=== PATIENT | male | born 1990 | race Caucasian/White ===

== ENCOUNTER 2018-11-06 10:35 | Inpatient (IN) | payer OTHER | END 2018-11-09 11:10 | disposition home or self-care (01) | LOC: YASAS 10:35 → Y6N 18:12 ==

== ENCOUNTER 2018-12-10 13:01 | Inpatient (IN) | payer OTHER | END 2018-12-13 17:30 | disposition other institution (70) | LOC: YASAS 13:01 → Y6N 17:17 ==

== ENCOUNTER 2018-12-13 17:55 | Inpatient (IN) | payer OTHER ==
--- NOTE | 2018-12-13 15:21 | HP ---
[facility] Rehab Assess/Revision - Admission History Admitted to Rehab from: [facility] - Findings Detox History & Physical reviewed: Yes Concur with findings: Yes Inpatient Rehab Admission - Rehab Decision to Admit Inpatient rehab admission?: Yes - Initial Determination Are CD services needed?: Yes Free of communicable disease: Yes Not in need of hospitalization: Yes - Rehab Admission Criteria Previous failed treatment: Yes Poor recovery environment: Yes Comorbidities: Yes Lacks judgement: Yes Patient is meeting Inpatient Rehab admission criteria:: Yes
[~2018-12-13 17:55] MED LIST: LOPERAMIDE HCL 2 MG CAPSULE PO PRN; MAGNESIUM CITRATE 300 ML BOTTLE PO PRN; MAGNESIUM HYDROX 2400MG/30ML ORAL SUSPENSION 30 ML CUP PO PRN; MENTHOL/PHENOL 1 EACH UD MM PRN; NICOTINE POLACRILEX 4 MG GUM BUC PRN; P-EPHED 60MG/TRIPROLIDI 2.5MG TABLET PO PRN; guaiFENesin 200 MG/10 ML 10 ML UNIT-DOSE CUPS PO PRN
[2018-12-13] MEDS: THIAMINE HCL 100 MG TABLET (FP) PO SCH (21:07)
[2018-12-13] MEDS: GABAPENTIN 300 MG CAPSULE (FP) PO SCH (21:07)
[2018-12-13] MEDS: MAG HYDROX/AL HYDROX/SIMETH 30 ML UNIT-DOSE CUP PO PRN (21:08)
[2018-12-13] MEDS: IBUPROFEN 400 MG TABLET (FP) PO PRN (21:09)
[2018-12-13] MEDS ORDERED: MELATONIN 5 MG TABLETS PO PRN (22:00)
[2018-12-14] MEDS: GABAPENTIN 300 MG CAPSULE (FP) PO SCH ×3 (06:29→21:09)
[2018-12-14] MEDS ORDERED: METHADONE HCL 10 MG TABLET PO SCH (08:15)
[2018-12-14] MEDS: IBUPROFEN 400 MG TABLET (FP) PO PRN (08:18)
[2018-12-14] MEDS: MAG HYDROX/AL HYDROX/SIMETH 30 ML UNIT-DOSE CUP PO PRN (08:43)
[2018-12-14] MEDS: PRENATAL VITAMINS W/ FOLIC ACID TABLET (FP) PO SCH (09:45)
[2018-12-14] MEDS: NICOTINE 21 MG/24 HOURS TOPICAL PATCH TD SCH (09:45)
[2018-12-14] MEDS: ACETAMINOPHEN 325 MG TABLET (FP) PO PRN ×2 (09:47→21:12)
[2018-12-14] MEDS ORDERED: PANTOPRAZOLE 40 MG TABLET (FP) PO SCH (10:00)
--- NOTE | 2018-12-14 12:39 | PN ---
[facility] Progress Note Note: Pt is a 28 y/o male admitted from [address] [place] [address] [address] [place] [address] rehab for substance use disorder. Pt c/o redness, swelling and pain x 3 days from IV drug injection before admission to detox. Reports it was symptomatic in detox but is more now. Pain rated 10/10.\\ Pt also wants protonix changed to Zantac of back to Prilosec because states "it is not working". Prilosec is noformulary at [facility] and pt was informed by this assembly instructions writer and the pharmacist, Kenyatta Montanez. Vital Signs - 24 hr 12/13/18 12/14/18 12/14/18 17:40 00:30 03:30 Temperature 97.9 F Pulse Rate 80 Respiratory 18 18 18 Rate Blood Pressure 123/70 12/14/18 06:36 Temperature Pulse Rate 65 Respiratory 18 Rate Blood Pressure 112/65 exam: Left Arm: area abobe left elbow warm with swelling,pain and redness. A/P Abcess with cellulitis due to iv drug injection Keflex 500 mg po Q6h x 7 days, first dose now Bacitracin ointment apply to affected areas as directed. Pt is agreeable to take Zantac.
[2018-12-14] MEDS ORDERED: CEPHALEXIN MONOHYDRATE 500 MG CAPSULE (UD) PO ONE (13:00)
[2018-12-14] MEDS: hydrOXYzine PAMOATE 50 MG CAPSULE (FP) PO PRN ×2 (14:16→21:11)
[2018-12-14] MEDS: BACITRACIN 15 GM TUBE TOPICAL OINTMENT TP SCH ×2 (14:17→21:09)
[2018-12-14] MEDS: CEPHALEXIN MONOHYDRATE 500 MG CAPSULE (UD) PO SCH ×2 (17:47→23:31)
[2018-12-14] MEDS: THIAMINE HCL 100 MG TABLET (FP) PO SCH (21:10)
[2018-12-14] MEDS: RANITIDINE HCL 150 MG TABLET (FP) PO SCH (21:10)
[2018-12-15] MEDS ORDERED: METHADONE HCL 40 MG DISPERSABLE TABLET ONE (06:07)
[2018-12-15] MEDS ORDERED: METHADONE HCL 10 MG TABLET ONE (06:07)
[2018-12-15] MEDS: METHADONE 80 MG, METHADONE 20 MG PO SCH (06:07)
[2018-12-15] MEDS: ACETAMINOPHEN 325 MG TABLET (FP) PO PRN ×2 (06:08→10:09)
[2018-12-15] MEDS: GABAPENTIN 300 MG CAPSULE (FP) PO SCH ×3 (06:09→22:29)
[2018-12-15] MEDS: CEPHALEXIN MONOHYDRATE 500 MG CAPSULE (UD) PO SCH ×3 (06:09→19:03)
[2018-12-15 06:52] VITALS: PULSE 80
[2018-12-15] MEDS: PRENATAL VITAMINS W/ FOLIC ACID TABLET (FP) PO SCH (10:08)
[2018-12-15] MEDS: BACITRACIN 15 GM TUBE TOPICAL OINTMENT TP SCH ×2 (10:08→22:28)
[2018-12-15] MEDS: RANITIDINE HCL 150 MG TABLET (FP) PO SCH ×2 (10:08→22:29)
[2018-12-15] MEDS: hydrOXYzine PAMOATE 50 MG CAPSULE (FP) PO PRN (10:08)
[2018-12-15] MEDS: NICOTINE 21 MG/24 HOURS TOPICAL PATCH TD SCH (10:11)
[2018-12-15] MEDS: IBUPROFEN 400 MG TABLET (FP) PO PRN (12:30)
--- NOTE | 2018-12-15 13:53 | PN ---
[facility] Progress Note Note: Pt still c/o excruciating pain due to abscess on left upper arm. Pt was seen yesterday re: abscess related to I.V drug injection and was started on keflex, Bacitracin ointment topically and warm compress. Pt requesting to be seen in the ER and "want it opened up". pt is restless and unable to stay in group comfortably. Pt denies n/v/d. Exhibiting Low grade temp. denies headache or dizziness. Vital Signs - 24 hr 12/15/18 12/15/18 12/15/18 00:30 03:30 06:51 Temperature 99.2 F Pulse Rate 80 Respiratory 18 18 18 Rate Blood Pressure 117/70 Exam: left upper arm above antecubital space is warm with redness, swelling, and pain to touch. A/P cellulitis left upper arm abscess left upper arm I.V. Drug inj. patient Transfer to [facility] [place] ER for evaluation and treatment via ambulance. Report given to Emily, Nurse Technical Inspector,ER and informed her [facility] to [facility] with Rehab treatment after treatment and clearance.
[2018-12-15 14:27] VITALS: BP 120/72; TEMP 98.2
[2018-12-15] MEDS: THIAMINE HCL 100 MG TABLET (FP) PO SCH (22:29)
[2018-12-16] MEDS: CEPHALEXIN MONOHYDRATE 500 MG CAPSULE (UD) PO SCH ×2 (01:28→07:13)
[2018-12-16] MEDS: METHADONE 80 MG, METHADONE 20 MG PO SCH (07:13)
[2018-12-16] MEDS: GABAPENTIN 300 MG CAPSULE (FP) PO SCH (07:14)
== END 2018-12-16 08:44 | disposition short-term general hospital (02) | DRG 772 ==
LOC: YASAS 17:55 → Y5N 17:57
PROVIDERS: ADMIT Neuromusculoskeletal Medicine & OMM; ATTEND Neuromusculoskeletal Medicine & OMM
PROC: HZ42ZZZ Group Counseling for Substance Abuse Treatment, Cognitive-Behavioral (ICD-10-PCS; principal; 2018-12-13)
DX: F10.20 Alcohol dependence, uncomplicated (principal); F11.20 Opioid dependence, uncomplicated; F13.20 Sedative, hypnotic or anxiolytic dependence, uncomplicated; F14.20 Cocaine dependence, uncomplicated; F12.20 Cannabis dependence, uncomplicated; F17.210 Nicotine dependence, cigarettes, uncomplicated; K21.9 Gastro-esophageal reflux disease without esophagitis; B18.2 Chronic viral hepatitis C; L03.114 Cellulitis of left upper limb; L02.414 Cutaneous abscess of left upper limb

== ENCOUNTER 2018-12-15 15:40 | Inpatient (IN) | payer OTHER ==
--- NOTE | 2018-12-15 15:46 | PDOC ---
Rapid Medical Evaluation Chief Complaint: Wound Time Seen by Provider: 12/15/18 15:42 Medical Evaluation: Allergies Allergy/AdvReac Type Severity Reaction Status Date / Time chlordiazepoxide Allergy Severe Difficulty Verified 12/10/18 17:51 [From Librium] Breathing Fish Containing Products Allergy Severe Hives Verified 12/10/18 15:25 12/15/18 15:44 Patient presents to ED with complaints of: left AC with redness swelling and pain, states + chills patient on brief exam: noted indurated erythematous raised area to left antecubital Patient ordered for: sepsis w/u and u/s of lue Patient to proceed to the ED Discharge Disposition - Diagnosis Abscess - Referrals - Patient Instructions - Post Discharge Activity
--- NOTE | 2018-12-15 16:59 | PDOC ---
History of Present Illness - General Chief Complaint: Wound Stated Complaint: LT ARM ABCESS Time Seen by Provider: 12/15/18 15:42 - History of Present Illness Initial Comments: 12/15/18 16:58 CHIEF COMPLAINT: abscess, cellulitis HISTORY OF PRESENT ILLNESS: 28 yo M with hx of opioid addiction presents to fast track with abscess to L arm x 2 days. Patient admits to "shooting up coke " a week ago and believes that's how his arm got infected. Patient states that he was started on antibiotics at the rehab center but the redness got worse. Per chart note patient was started on Keflex 12/14 but symptoms have worsened. Patient denies any fever, chills, nausea, vomiting diarrhea. No recent travel or sick contacts. PAST MEDICAL HISTORY: Denies past medical history FAMILY HISTORY: Denies SOCIAL HISTORY: Current smoker, 1 pack daily. History of opioid addiction, cocaine abuse. SURGICAL HISTORY: R ankle surgery "metal rods", appendectomy ALLERGIES: No known drug allergies REVIEW OF SYSTEMS General/Constitutional: Chills since this morning. Denies weakness, weight change. HEENT: Denies change in vision. Denies ear pain or discharge. Denies sore throat. Cardiovascular: Denies chest pain or shortness of breath. Respiratory: Denies cough, wheezing, or hemoptysis. Gastrointestinal: +Nausea. Denies diarrhea or constipation. Denies rectal bleeding. Genitourinary: Denies dysuria, frequency, or change in urination. Musculoskeletal: Denies joint or muscle swelling or pain. Denies neck or back pain. Skin and breasts: Denies rash or easy bruising. Neurologic: Denies headache, vertigo, loss of consciousness, or loss of sensation. Psychiatric: Denies depression or anxiety. PHYSICAL EXAM General Appearance: Pale, diaphoretic. No apparent distress, no intoxication. HEENT: EOMI, PERRLA, normal ENT inspection, normal voice, TMs normal, pharynx normal. No conjunctival pallor. No photophobia, scleral icterus. Neck: Supple. Trachea midline. No tenderness, rigidity, carotid bruit, stridor , lymphadenopathy, or thyromegaly. Respiratory/Chest: Lungs CTAB. No shortness of breath, chest tenderness, respiratory distress, accessory muscle use. No crackles, rales, rhonchi, stridor , wheezing, dullness Cardiovascular: RRR. S1, S2. No JVD, murmur, bradycardia, tachycardia. Vascular Pulses: Dorsalis-Pedis (R): 2+, Dorsalis-Pedis (L): 2+ Gastrointestinal/Abdominal: Normal bowel sounds. Abdomen soft, non-distended. No tenderness or rebound tenderness. No organomegaly, pulsatile mass, guarding , hernia, hepatomegaly, splenomegaly. Lymphatic: No adenopathy, tenderness. Musculoskeletal/Extremities: Induration, tenderness, and erythema with blister just proximal to left AC. Patient reports pain and "stiffness" to entire left arm. Full ROM to left arm, neurovascularly intact. Normal inspection. FROM of all extremities, normal capillary refill. Pelvis Stable. No CVA tenderness. No tenderness to extremities, pedal edema, swelling, erythema or deformity. Integumentary: Appropriate color, dry, warm. No cyanosis, erythema, jaundice or rash Neurologic: tire wrapper II-XII intact. Fully oriented, alert. Appropriate mood/affect. Motor strength 5/5. No appreciable EOM palsy, facial droop or sensory deficit. Past History - Past Medical History Allergies/Adverse Reactions: Allergies Allergy/AdvReac Type Severity Reaction Status Date / Time chlordiazepoxide Allergy Severe Difficulty Verified 12/15/18 15:45 [From Librium] Breathing Fish Containing Products Allergy Severe Hives Verified 12/15/18 15:45 Home Medications: Ambulatory Orders Gabapentin 600 mg PO TID 11/06/18 Omeprazole 40 mg PO DAILY 11/06/18 Anemia: No Asthma: No Cancer: No Cardiac Disorders: No CVA: No COPD: No CHF: No Dementia: No Diabetes: No GI Disorders: No Disorders: No HTN: No Hypercholesterolemia: No Kidney Stones: No Liver Disease: No Seizures: No Thyroid Disease: No - Surgical History Abdominal Surgery: No Appendectomy: No Cardiac Surgery: No Cholecystectomy: No Lung Surgery: No Neurologic Surgery: No Orthopedic Surgery: Yes (fx of right leg in 2017) - Reproductive History Testicular Surgery: No - Suicide/Smoking/Psychosocial Hx Smoking History: Current every day smoker Have you smoked in the past 12 months: Yes Number of Cigarettes Smoked Daily: 20 Cigars Per Day: 0 Information on smoking cessation initiated: Yes 'Breaking Loose' booklet given: 12/10/18 Hx Alcohol Use: Yes Drug/Substance Use Hx: Yes (opiods, heroin) Substance Use Type: Alcohol, Cocaine, Heroin, Tranquilizers Hx Substance Use Treatment: Yes *Physical Exam - Vital Signs Last Vital Signs Temp Pulse Resp BP Pulse Ox 98.2 F 79 19 116/66 99 12/15/18 15:42 12/15/18 15:42 12/15/18 15:42 12/15/18 15:42 12/15/18 15:42 ED Treatment Course - LABORATORY CBC & Chemistry Diagram: 12/15/18 17:04 12/15/18 17:04 Medical Decision Making - Medical Decision Making 12/15/18 20:25 28 yo M with hx of opioid addiction presents to fast track with abscess to L arm x 2 days. labs, us of LUE ordered in triage Given hx of IVDU and failed outpatient abx, will admit for IV abx. Discussed with admitting service, patient accepted for inpatient admission. *DC/Admit/Observation/Transfer Diagnosis at time of Disposition: Abscess - Discharge Dispostion Decision to Admit order: Yes - Referrals - Patient Instructions - Post Discharge Activity
[2018-12-15] MEDS ORDERED: ACETAMINOPHEN 1000 MG/100 ML VIAL (NON FORMULARY) IVPB ONE (17:02)
[2018-12-15 17:29] LABS: BASO % 0.6 % (0-2.0); EOS % 3.7 % (0-4.5); HEMATOCRIT 36.4 % (35.4-49); HEMOGLOBIN 12.4 GM/dL (11.7-16.9); LYMPH % 28.1 % (8-40); MCH 26.7 pg (25.7-33.7); MCHC 34.2 g/dl (32.0-35.9); MEAN CELL VOLUME 78.3 fl (80-96); MEAN PLT VOLUME 8.4 fl (7.5-11.1); MONO % 12.9 % (3.8-10.2); NEUT % 54.7 % (42.8-82.8); PLATELET COUNT 210 K/MM3 (134-434); RBC 4.65 M/mm3 (4.00-5.60); RDW 15.7 % (11.9-15.9); WHITE BLOOD COUNT 8.1 K/mm3 (4.0-10.0)
[2018-12-15 17:36] LABS: INR 1.01 (0.83-1.09); PROTHROMBIN TIME (PATIENT) 11.9 SEC (9.7-13.0)
[2018-12-15 17:54] LABS: ALBUMIN 3.7 g/dl (3.4-5.0); BILIRUBIN,TOTAL 0.8 mg/dL (0.2-1); BLOOD UREA NITROGEN 12.8 mg/dL (7-18); CREATININE 0.8 mg/dL (0.55-1.3); POTASSIUM 4.1 mmol/L (3.5-5.1)
[2018-12-15] MEDS ORDERED: hydrOXYzine HCL 25 MG TABLET (FP) PO ONE (18:13)
[2018-12-15] MEDS ORDERED: ACETAMINOPHEN INJECTION 100 ML IVPB ONE (18:20)
[2018-12-15] MEDS ORDERED: VANCOMYCIN HCL 1,250 MG in DEXTROSE 5%-WATER - 250 ML IVPB ONE (18:45)
[2018-12-15] MEDS ORDERED: MELATONIN 5 MG TABLETS PO PRN (20:02)
[2018-12-15] MEDS ORDERED: hydrOXYzine PAMOATE 50 MG CAPSULE (FP) PO PRN (20:04)
--- NOTE | 2018-12-15 20:18 | HP ---
Admitting History and Physical - Admission Chief Complaint: Pain and Swelling to LUE History of Present Illness: This is a 28 y/o man from [facility] with a PMHx of Polysubstance Abuse (Cocaine , Heroin, Alcohol). Who presents to the ED with pain, erythema and swelling to E x 3 days. Patient admits to IVDU to same extremity. He was started on Keflex at [facility] with no improvement. Patient reports diaphoresis and chills. Patient denies fever, cough, dizziness, HDZ, CP, palpitations, AP, N/V/D , constipation, hematochezia, melena, hematuria, dysuria. Last TD unknown History Source: Patient Limitations to Obtaining History: No Limitations - Past Surgical History Additional Past Surgical History: Right Ankle Repair with Kristian placement - Smoking History Smoking history: Current every day smoker Have you smoked in the past 12 months: Yes Aproximately how many cigarettes per day: 20 - Alcohol/Substance Use Hx Alcohol Use: Yes History of Substance Use: reports: Cocaine, Heroin - Social History Usual Living Arrangement: Yes: Alone ADL: Independent History of Recent Travel: No Home Medications - Allergies Allergies/Adverse Reactions: Allergies Allergy/AdvReac Type Severity Reaction Status Date / Time chlordiazepoxide Allergy Severe Difficulty Verified 12/15/18 15:45 [From Librium] Breathing Fish Containing Products Allergy Severe Hives Verified 12/15/18 15:45 - Home Medications Home Medications: Ambulatory Orders Gabapentin 600 mg PO TID 11/06/18 Omeprazole 40 mg PO DAILY 11/06/18 Family Disease History - Family Disease History Family Disease History: Diabetes: Father, [place]: Grandparent ( alcoholic,) , Other: Grandparent, Brother (dsa,sober) Review of Systems - Review of Systems Constitutional: reports: Chills, Diaphoresis Eyes: reports: No Symptoms HENT: reports: No Symptoms Neck: reports: No Symptoms Cardiovascular: reports: No Symptoms Respiratory: reports: No Symptoms Gastrointestinal: reports: No Symptoms Genitourinary: reports: No Symptoms Breasts: reports: No Symptoms Reported Musculoskeletal: reports: Extremity Pain, Other (Left Upper Arm Swelling) Integumentary: reports: Erythema Neurological: reports: No Symptoms Endocrine: reports: No Symptoms Hematology/Lymphatic: reports: No Symptoms Psychiatric: reports: Anxiety Pain Intensity: 9 Physical Examination Vital Signs: Vital Signs Temperature 98.2 F 12/15/18 15:42 Pulse Rate 79 12/15/18 15:42 Respiratory Rate 19 12/15/18 15:42 Blood Pressure 116/66 12/15/18 15:42 O2 Sat by Pulse Oximetry (%) 99 12/15/18 15:42 Constitutional: Yes: Anxious, Mild Distress Eyes: Yes: WNL, Conjunctiva Clear, EOM Intact, PERRL HENT: Yes: WNL, Atraumatic, Normocephalic Neck: Yes: WNL, Supple, Trachea Midline Cardiovascular: Yes: WNL, Regular Rate and Rhythm, S1, S2 Respiratory: Yes: WNL, Regular, CTA Bilaterally Gastrointestinal: Yes: WNL, Normal Bowel Sounds, Soft, Abdomen, Obese ...Rectal Exam: Yes: Deferred Renal/: Yes: WNL Breast(s): Yes: WNL Musculoskeletal: Yes: Other (left upper extremity swelling) Extremities: Yes: Erythema, Other (induration and fluctulant) Edema: Yes Edema: LUE: 1+ Peripheral Pulses WNL: Yes Integumentary: Yes: Erythema, Tattoos Wound/Incision: Yes: Reddened Neurological: Yes: WNL, Alert, Oriented, Cran Nerves II-XII Intact ...Motor Strength: WNL Psychiatric: Yes: WNL, Alert, Oriented Labs: CBC, BMP 12/15/18 17:04 12/15/18 17:04 Laboratory Results - last 24 hr 12/15/18 12/15/18 12/15/18 17:04 17:04 17:04 WBC 8.1 RBC 4.65 Hgb 12.4 Hct 36.4 MCV 78.3 L MCH 26.7 MCHC 34.2 RDW 15.7 Plt Count 210 MPV 8.4 Absolute Neuts (auto) 4.4 Neutrophils % 54.7 Lymphocytes % 28.1 Monocytes % 12.9 H Eosinophils % 3.7 Basophils % 0.6 Nucleated RBC % 0 PT with INR INR Sodium 138 Potassium 4.1 Chloride 100 Carbon Dioxide 32 Anion Gap 6 L BUN 12.8 Creatinine 0.8 Est GFR (CKD-EPI)AfAm 138.93 Est GFR (CKD-EPI)NonAf 119.87 Random Glucose 99 Lactic Acid 1.2 Calcium 9.0 Total Bilirubin 0.8 AST 27 ALT 36 Alkaline Phosphatase 82 Total Protein 8.0 Albumin 3.7 12/15/18 17:04 WBC RBC Hgb Hct MCV MCH MCHC RDW Plt Count MPV Absolute Neuts (auto) Neutrophils % Lymphocytes % Monocytes % Eosinophils % Basophils % Nucleated RBC % PT with INR 11.90 INR 1.01 Sodium Potassium Chloride Carbon Dioxide Anion Gap BUN Creatinine Est GFR (CKD-EPI)AfAm Est GFR (CKD-EPI)NonAf Random Glucose Lactic Acid Calcium Total Bilirubin AST ALT Alkaline Phosphatase Total Protein Albumin Intake & Output 12/12/18 12/13/18 12/14/18 12/15/18 23:59 23:59 23:59 23:59 Weight 122.47 kg Current Medications Generic Name Dose Route Start Last Admin Trade Name Freq PRN Reason Stop Dose Admin Acetaminophen 1,000 mg 12/16/18 02:00 Ofirmev Injection - IVPB Q6H PRN PAIN LEVEL 6-10 Gabapentin 600 mg 12/15/18 22:00 Neurontin - PO TID OG Gabapentin 600 mg 12/15/18 22:00 Neurontin - PO TID [facility] Hydroxyzine Pamoate 50 mg 12/15/18 20:04 Vistaril - PO Q4H PRN AGITATION Vancomycin HCl 1,250 mg/ 250 mls @ 250 mls/2 hr 12/15/18 18:45 Dextrose IVPB 12/15/18 20:44 ONCE ONE Melatonin 5 mg 12/15/18 20:02 Melatonin PO HS PRN INSOMNIA Methadone HCl 100 mg 12/16/18 06:00 Dolophine - PO DAILY@0600 [facility] Nicotine 21 mg 12/16/18 10:00 Nicoderm Patch - TD DAILY [facility] Multivit/Folic Acid/Iron 1 tab 12/16/18 10:00 Vitamins (Sjr) - PO DAILY [facility] Ranitidine HCl 150 mg 12/15/18 22:00 Zantac - PO BID [facility] Thiamine HCl 100 mg 12/15/18 22:00 Vitamin B1 - PO HS [facility] Imaging - Results X-ray: Pending Ultrasound: Pending EKG: Pending Problem List - Problems (1) Cellulitis and abscess of upper extremity Assessment/Plan: Likely secondary to IVDU (Heroin) Blood Cultures-pending Vancomycin, Zosyn given in ED, will continue Appreciate ID consult Appreciate Vaccinator consult Duplex of LUE- r/o DVT Wells Score 1 Xray LUE- r/o FB Elevate extremity Neurovascular checks Monitor CBC Pain Management- [facility] Code(s): L03.119 - CELLULITIS OF UNSPECIFIED PART OF LIMB; L02.419 - CUTANEOUS ABSCESS OF LIMB, UNSPECIFIED (2) IVDU (intravenous drug user) Assessment/Plan: Appreciate Vaccinator consult Continue Methadone CIWAr 4 Vistaril prn Code(s): F19.90 - OTHER PSYCHOACTIVE SUBSTANCE USE, UNSPECIFIED, UNCOMPLICATED (3) Cocaine dependence Assessment/Plan: See above Code(s): F14.20 - COCAINE DEPENDENCE, UNCOMPLICATED Qualifiers: Substance use status: uncomplicated Qualified Code(s): F14.20 - Cocaine dependence, uncomplicated (4) Alcohol dependence with uncomplicated withdrawal Assessment/Plan: See above Code(s): F10.230 - ALCOHOL DEPENDENCE WITH WITHDRAWAL, UNCOMPLICATED (5) Cannabis dependence, uncomplicated Assessment/Plan: See above Code(s): F12.20 - CANNABIS DEPENDENCE, UNCOMPLICATED (6) GERD (gastroesophageal reflux disease) Assessment/Plan: stable Continue Protonix Code(s): K21.9 - GASTRO-ESOPHAGEAL REFLUX DISEASE WITHOUT ESOPHAGITIS Qualifiers: Esophagitis presence: without esophagitis Qualified Code(s): K21.9 - Gastro -esophageal reflux disease without esophagitis (7) Tobacco dependence Assessment/Plan: Continue Nicoderm Patch Smoking Cessation discussed Code(s): F17.200 - NICOTINE DEPENDENCE, UNSPECIFIED, UNCOMPLICATED (8) Neuropathy Assessment/Plan: stable Continue Gabapentin Code(s): G62.9 - POLYNEUROPATHY, UNSPECIFIED (9) History of anxiety disorder Assessment/Plan: stable Will continue to treat with interventions, accordingly Code(s): Z86.59 - PERSONAL HISTORY OF OTHER MENTAL AND BEHAVIORAL DISORDERS (10) Insomnia Assessment/Plan: stable Melatonin Code(s): G47.00 - INSOMNIA, UNSPECIFIED Assessment/Plan This is a 28 y/o man with a PMHx of Polysubstance Abuse (IVDU- Heroin, Cocaine, Alcohol), GERD, Neuropathy, Anxiety. Admitted for Cellulitis and Abscess of LUE for further evaluation of their emergent condition. Plan: See Problem List FEN PO fluids as tolerated Replete lytes prn Regular Diet DVT ppx OOB SCDs Heparin SQ Code Status: Full Code Dispo: Requires Inpatient Care Visit type - Emergency Visit Emergency Visit: Yes ED Registration Date: 12/15/18 Care time: The patient presented to the Emergency Department on the above date and was hospitalized for further evaluation of their emergent condition. - New Patient This patient is new to me today: Yes Date on this admission: 12/15/18 - Critical Care Critical Care patient: No
[2018-12-15] MEDS ORDERED: GABAPENTIN 100 MG CAPSULE (FP) ONE (21:47)
[2018-12-15] MEDS ORDERED: THIAMINE HCL 100 MG TABLET (FP) ONE (21:47)
[2018-12-15] MEDS: THIAMINE HCL 100 MG TABLET (FP) PO SCH (21:48)
[2018-12-15] MEDS: RANITIDINE HCL 150 MG TABLET (FP) PO SCH (21:48)
[2018-12-15] MEDS: GABAPENTIN 300 MG CAPSULE (FP) PO SCH ×2 (21:48)
[2018-12-15] MEDS ORDERED: PATIENT'S OWN MEDICATION (NON-FORMULARY) (Gabapentin [Gabapentin] 600 MG) PO SCH (22:00)
[2018-12-16] MEDS ORDERED: ACETAMINOPHEN 1000 MG/100 ML VIAL (NON FORMULARY) IVPB PRN (02:00)
[2018-12-16] MEDS ORDERED: METHADONE HCL 10 MG TABLET PO SCH (06:00)
[2018-12-16] MEDS ORDERED: METHADONE HCL 10 MG TABLET ONE (07:09)
[2018-12-16] MEDS ORDERED: METHADONE HCL 40 MG DISPERSABLE TABLET ONE (07:10)
[2018-12-16] MEDS: GABAPENTIN 300 MG CAPSULE (FP) PO SCH ×4 (07:17→21:07)
[2018-12-16] MEDS: METHADONE 80 MG, METHADONE 20 MG PO SCH (07:17)
[2018-12-16] MEDS ORDERED: ACETAMINOPHEN INJECTION 100 ML IVPB ONE (08:24)
[2018-12-16] MEDS: RANITIDINE HCL 150 MG TABLET (FP) PO SCH ×2 (09:02→21:09)
--- NOTE | 2018-12-16 09:26 | PN ---
Progress Note, Physician Chief Complaint: patient seen in the ED awaiting bed assignment. reports feeling extremely anxious today about his arm and how he wants to get better, and detox. History of Present Illness: Patient is a 28 year old male from [facility] with a significant past medical history of polysubstance abuse (cocaine, heroin, alcohol). He presents to the ED with left arm pain, erythema and swelling to E x 3 days. Patient admits to IVDU to left arm and at times the right arm. He was started on Keflex at [facility] with no improvement. Patient reports diaphoresis and chills. Patient denies fever, cough, dizziness, HDZ, CP, palpitations, AP, N/ V/D, constipation, hematochezia, melena, hematuria, dysuria. - Current Medication List Current Medications: Active Medications Acetaminophen (Tylenol -) 650 mg PO Q6H PRN PRN Reason: PAIN LEVEL 7 - 10 Alprazolam (Xanax -) 2 mg PO ONCE ONE Stop: 12/16/18 09:25 Gabapentin (Neurontin -) 600 mg PO TID [facility] Last Admin: 12/16/18 07:17 Dose: 600 mg Hydroxyzine Pamoate (Vistaril -) 50 mg PO Q4H PRN PRN Reason: AGITATION Melatonin (Melatonin) 5 mg PO HS PRN PRN Reason: INSOMNIA Methadone HCl 80 mg/ Methadone (HCl 20 mg) 100 mg PO DAILY@0600 [facility] Last Admin: 12/16/18 07:17 Dose: 100 mg Nicotine (Nicoderm Patch -) 21 mg TD DAILY [facility] Multivit/Folic Acid/Iron ( Vitamins (Sjr) -) 1 tab PO DAILY [facility] Ranitidine HCl (Zantac -) 150 mg PO BID [facility] Last Admin: 12/16/18 09:02 Dose: 150 mg Thiamine HCl (Vitamin B1 -) 100 mg PO HS [facility] Last Admin: 12/15/18 21:48 Dose: 100 mg - Objective Vital Signs: Vital Signs Temperature 97.9 F 12/16/18 00:35 Pulse Rate 64 12/16/18 00:35 Respiratory Rate 20 12/16/18 00:35 Blood Pressure 97/63 12/16/18 00:35 O2 Sat by Pulse Oximetry (%) 97 12/16/18 00:35 Constitutional: Yes: Anxious Eyes: Yes: WNL HENT: Yes: Atraumatic Neck: Yes: Supple Cardiovascular: Yes: Regular Rate and Rhythm Respiratory: Yes: CTA Bilaterally, Diminished Gastrointestinal: Yes: Normal Bowel Sounds ...Rectal Exam: Yes: Deferred Musculoskeletal: Yes: Other (left arm Induration, tenderness, and erythema with blister just proximal to left AC. Patient reports pain and "stiffness" to this arm. arm painful to touch. Abscess/fluid collection seen on doppler.) Extremities: Yes: WNL Edema: Yes Edema: LUE: 1+ Peripheral Pulses WNL: Yes Integumentary: Yes: Erythema Labs: CBC, BMP 12/15/18 17:04 12/15/18 17:04 INR, PTT INR 1.01 (0.83-1.09) 12/15/18 17:04 - ....Imaging Ultrasound: Report Reviewed Problem List - Problems (1) Cellulitis and abscess of upper extremity Assessment/Plan: cellulitis of left upper arm with redness, pain and abscess with fluid collection seen on imaging (left arm ultrasound) LIkely secondary to IVDU he reports over one week ago. Surgery consulted Has been HIV tested on 11/07/18 and results are negative for an Echo today Given Zosyn in the ED. continuation of antibiotics per ID. Elevate extremity Monitor CBC Pain Management-with IV tylenol. no narcotics. patient on methadone. Code(s): L03.119 - CELLULITIS OF UNSPECIFIED PART OF LIMB; L02.419 - CUTANEOUS ABSCESS OF LIMB, UNSPECIFIED (2) Abscess Assessment/Plan: for surgical consult will make NPO for possible I&D in am. Code(s): L02.91 - CUTANEOUS ABSCESS, UNSPECIFIED (3) Tobacco dependence Assessment/Plan: nicotine patch Code(s): F17.200 - NICOTINE DEPENDENCE, UNSPECIFIED, UNCOMPLICATED (4) Cellulitis and abscess of hand Assessment/Plan: see above Code(s): L03.119 - CELLULITIS OF UNSPECIFIED PART OF LIMB; L02.519 - CUTANEOUS ABSCESS OF UNSPECIFIED HAND (5) Cocaine dependence Assessment/Plan: on methadone Code(s): F14.20 - COCAINE DEPENDENCE, UNCOMPLICATED Qualifiers: Substance use status: uncomplicated Qualified Code(s): F14.20 - Cocaine dependence, uncomplicated (6) IVDU (intravenous drug user) Assessment/Plan: at [facility] for detox, then rehab. Code(s): F19.90 - OTHER PSYCHOACTIVE SUBSTANCE USE, UNSPECIFIED, UNCOMPLICATED (7) Methadone maintenance therapy patient Assessment/Plan: continue methadone Code(s): F11.20 - OPIOID DEPENDENCE, UNCOMPLICATED (8) Prophylactic measure Assessment/Plan: fen tolerating po start heparin bid full code Code(s): Z29.9 - ENCOUNTER FOR PROPHYLACTIC MEASURES, UNSPECIFIED Visit type - Emergency Visit Emergency Visit: Yes ED Registration Date: 12/15/18 Care time: The patient presented to the Emergency Department on the above date and was hospitalized for further evaluation of their emergent condition. - New Patient This patient is new to me today: Yes Date on this admission: 12/16/18 - Critical Care Critical Care patient: No - Discharge Referral Referred to [facility] Med P.C.: No
[2018-12-16] MEDS ORDERED: ALPRAZolam 2 MG TABLET PO ONE ×2 (09:30→19:43)
[2018-12-16] MEDS: NICOTINE 21 MG/24 HOURS TOPICAL PATCH TD SCH (09:40)
[2018-12-16] MEDS: PRENATAL VITAMINS W/ FOLIC ACID TABLET (FP) PO SCH (09:42)
[2018-12-16] MEDS: ACETAMINOPHEN 325 MG TABLET (FP) PO PRN ×2 (09:45→17:23)
[2018-12-16] MEDS ORDERED: ALPRAZolam 2 MG TABLET ONE (09:58)
[2018-12-16] MEDS ORDERED: ACETAMINOPHEN 325 MG TABLET (FP) ONE ×2 (09:58→17:26)
[2018-12-16 10:30] LABS: BASO % 0.6 % (0-2.0); EOS % 3.6 % (0-4.5); HEMATOCRIT 34.6 % (35.4-49); HEMOGLOBIN 11.7 GM/dL (11.7-16.9); LYMPH % 25.8 % (8-40); MCH 26.1 pg (25.7-33.7); MCHC 33.7 g/dl (32.0-35.9); MEAN CELL VOLUME 77.5 fl (80-96); MONO % 8.9 % (3.8-10.2); NEUT % 61.1 % (42.8-82.8); PLATELET COUNT 218 K/MM3 (134-434); RBC 4.47 M/mm3 (4.00-5.60); RDW 15.8 % (11.9-15.9); WHITE BLOOD COUNT 7.2 K/mm3 (4.0-10.0)
[2018-12-16 10:54] LABS: ALBUMIN 3.6 g/dl (3.4-5.0); BILIRUBIN,TOTAL 0.3 mg/dL (0.2-1); CALCIUM 8.8 mg/dL (8.5-10.1); CREATININE 0.7 mg/dL (0.55-1.3); MAGNESIUM 2.1 mg/dL (1.8-2.4); POTASSIUM 4.3 mmol/L (3.5-5.1); TOT PROT 7.7 g/dl (6.4-8.2)
--- NOTE | 2018-12-16 14:06 | EKG ---
Test Reason : Blood Pressure : / mmHG Vent. Rate : 068 BPM Atrial Rate : 068 BPM P-R Int : 176 ms QRS Dur : 092 ms QT Int : 434 ms P-R-T Axes : 010 008 014 degrees QTc Int : 461 ms NORMAL SINUS RHYTHM NORMAL ECG WHEN COMPARED WITH ECG OF 11-DEC-2018 08:34, NO SIGNIFICANT CHANGE WAS FOUND Confirmed by ARMANDO OCAMPO MD ([id number]) on 12/16/2018 2:06:36 PM Referred By: Confirmed By:ARMANDO OCAMPO MD
--- NOTE | 2018-12-16 15:21 | ECHO ---
Name: TOMMY MACK Exam:Adult Echocardiogram Study Date: 12/16/2018 12:46 PM Age: 28 yrs Reason For Study: IV DRUG USE Height: 71 in Weight: 270 lb BSA: 2.4 m2 MMode/2D Measurements & Calculations IVSd: 0.98 cm Ao root diam: 2.5 cm LVIDd: 5.1 cm LA dimension: 3.8 cm LVIDs: 3.4 cm LVPWd: 1.1 cm LVPWs: 1.5 cm EDV(Teich): 124.9 ml ESV(Teich): 48.1 ml LVOT diam: 2.4 cm TAPSE: 2.3 cm RV S Jamil: 13.6 cm/sec Doppler Measurements & Calculations MV E max jamil: 93.3 cm/sec Ao V2 max: 133.6 cm/sec MV A max jamil: 57.8 cm/sec Ao max P.1 mmHg MV E/A: 1.6 Ao V2 mean: 86.6 cm/sec MV dec time: 0.18 sec Ao mean P.6 mmHg Ao V2 VTI: 27.7 cm SOLEDAD(I,D): 3.7 cm2 SOLEDAD(V,D): 4.2 cm2 LV V1 max P.1 mmHg SV(LVOT): 102.3 ml LV V1 mean P.8 mmHg LV V1 max: 123.4 cm/sec LV V1 mean: 75.6 cm/sec LV V1 VTI: 22.6 cm PA V2 max: 98.9 cm/sec Med Peak E' Jamil: 7.6 cm/sec PA max P.9 mmHg Med E/e': 12.3 Lat Peak E' Jamil: 11.7 cm/sec Lat E/e': 8.0 Procedure A complete two-dimensional transthoracic echocardiogram was performed (2D, M-mode, Doppler and color flow Doppler). Left Ventricle The left ventricular size, thickness and function are normal. The left ventricular ejection fraction is normal. Ejection Fraction = 55-60%. The left ventricular wall motion is normal. Right Ventricle The right ventricle is normal in size and function. Atria Normal left and right atrial size and function. Mitral Valve There is trace mitral regurgitation. Tricuspid Valve No tricuspid regurgitation. There was insufficient TR detected to calculate RV systolic pressure. Aortic Valve No hemodynamically significant valvular aortic stenosis. No aortic regurgitation is present. Pulmonic Valve There is no pulmonic valvular regurgitation. Great Vessels The aortic root is normal size. Pericardium/Pleura There is no pericardial effusion. Interpretation Summary The left ventricular size, thickness and function are normal The right ventricle is normal in size and function. There is trace mitral regurgitation. MD Rickey Ronquillo 12/16/2018 03:20 PM
[2018-12-16] MEDS ORDERED: SODIUM CHLORIDE 1,000 ML IV SCH (17:15)
--- NOTE | 2018-12-16 17:25 | CON.ID ---
Consult Consult Specialty:: infectious diseases - Alcohol/Substance Use Hx Alcohol Use: Yes History of Substance Use: reports: Cocaine, Heroin - Smoking History Smoking history: Current every day smoker Have you smoked in the past 12 months: Yes Aproximately how many cigarettes per day: 20 - Social History ADL: Independent History of Recent Travel: No Home Medications - Allergies Allergies/Adverse Reactions: Allergies Allergy/AdvReac Type Severity Reaction Status Date / Time chlordiazepoxide Allergy Severe Difficulty Verified 12/15/18 15:45 [From Librium] Breathing Fish Containing Products Allergy Severe Hives Verified 12/15/18 15:45 - Home Medications Home Medications: Ambulatory Orders Gabapentin 600 mg PO TID 11/06/18 Omeprazole 40 mg PO DAILY 11/06/18 Physical Exam Vital Signs: Vital Signs Temperature 97.9 F 12/16/18 00:35 Pulse Rate 64 12/16/18 00:35 Respiratory Rate 20 12/16/18 00:35 Blood Pressure 97/63 12/16/18 00:35 O2 Sat by Pulse Oximetry (%) 97 12/16/18 00:35 Labs: CBC, BMP 12/16/18 10:00 12/16/18 10:00
[2018-12-16] MEDS ORDERED: TETANUS AND DIPHTHERIA TOXOID 0.5 ML DISP.SYRIN IM ONE (17:27)
[2018-12-16] MEDS ORDERED: VANCOMYCIN HCL 1,250 MG in DEXTROSE 5%-WATER - 250 ML IVPB SCH (17:30)
[2018-12-16] MEDS ORDERED: RANITIDINE HCL 150 MG TABLET (FP) PO ONE (17:33)
[2018-12-16] MEDS ORDERED: PIPERACILLIN/TAZOB 3.375 GM 3.375 GM/50 ML BAG IVPB ONE (17:47)
[2018-12-16] MEDS: PIPERACILLIN/TAZOB 3.375 GM 3.375 GM in DEXTROSE 5%-WATER - 50 ML IVPB SCH (17:50)
[2018-12-16] MEDS ORDERED: NICOTINE 21 MG/24 HOURS TOPICAL PATCH TD ONE (18:36)
[2018-12-16 20:59] VITALS: BMI 35.9
[2018-12-16] MEDS: THIAMINE HCL 100 MG TABLET (FP) PO SCH (21:08)
[2018-12-17] MEDS ORDERED: DEXTROSE 5%-WATER - 50 ML IVPB ONE ×2 (01:02→09:38)
[2018-12-17] MEDS ORDERED: PIPERACILLIN/TAZOBACTAM 3.375 GM VIAL IVPB ONE ×2 (01:02→09:38)
[2018-12-17] MEDS: PIPERACILLIN/TAZOB 3.375 GM 3.375 GM in DEXTROSE 5%-WATER - 50 ML IVPB SCH ×2 (01:50→10:29)
[2018-12-17] MEDS: ACETAMINOPHEN 325 MG TABLET (FP) PO PRN (03:30)
[2018-12-17] MEDS ORDERED: METHADONE HCL 10 MG TABLET ONE (05:41)
[2018-12-17] MEDS ORDERED: METHADONE HCL 40 MG DISPERSABLE TABLET ONE (05:41)
[2018-12-17] MEDS: METHADONE 80 MG, METHADONE 20 MG PO SCH (06:13)
[2018-12-17] MEDS: GABAPENTIN 300 MG CAPSULE (FP) PO SCH (06:13)
[2018-12-17 07:03] VITALS: BP 122/57; PULSE 71; TEMP 97.6
[2018-12-17] MEDS ORDERED: ONDANSETRON 4 MG/2 ML VIAL IVPUSH PRN (07:59)
[2018-12-17] MEDS ORDERED: GABAPENTIN 300 MG CAPSULE (FP) PO ONE (09:09)
--- NOTE | 2018-12-17 09:34 | CONSULT ---
- Consultation REQUESTING PROVIDER: Delaney Slater NP CONSULT REQUEST: We have been asked to surgically evaluate this patient for an ABSSSI of the left antecubital fossa. PCP:Bridgette Gasca NP HISTORY OF PRESENT ILLNESS:CTSP who is a 28 y/o male from [facility] with a PMHx of Polysubstance Abuse (Cocaine, Heroin, Alcohol). He presents to the ED with pain, erythema and swelling to E x 3 days. Patient admits to IVDU to same extremity. He was started on Keflex at [facility] with no improvement. Patient reports diaphoresis and chills. PMHx: polysubstance abuse PSHx: ankle fx. Home Medications Medication Instructions Recorded Gabapentin 600 mg PO TID 11/06/18 Omeprazole 40 mg PO DAILY 11/06/18 Allergies Allergy/AdvReac Type Severity Reaction Status Date / Time chlordiazepoxide Allergy Severe Difficulty Verified 12/15/18 15:45 [From Librium] Breathing Fish Containing Products Allergy Severe Hives Verified 12/15/18 15:45 REVIEW OF SYSTEMS:would not cooperate w/answering questions. PHYSICAL EXAM: GENERAL: Awake, alert, and fully oriented, in slight distress. HEAD: Normal with no signs of trauma. EYES: sclera anicteric, conjunctiva clear. NECK: Normal ROM, supple without lymphadenopathy, JVD, or masses. ABDOMEN: Soft, nontender, not distended, normoactive bowel sounds, no guarding, no rebound, no masses. No organomegaly. MUSCULOSKELETAL: Normal ROM at all joints e/f left elbow. No bony deformities or tenderness. No CVA tenderness. UPPER EXTREMITIES: 2+ pulses, warm, well-perfused. No cyanosis. Cap refill <2 seconds. No peripheral edema. LOWER EXTREMITIES: 2+ pulses, warm, well-perfused. No calf tenderness. No peripheral edema. NEUROLOGICAL: Normal speech, gait not observed. PSYCH: Cooperative. Good eye contact. Appropriate mood and affect. SKIN: Warm, dry, normal turgor, ABSSSI(abscess) of the left antecubital fossa. Vital Signs Temperature 97.6 F 12/17/18 06:00 Pulse Rate 71 12/17/18 06:00 Respiratory Rate 18 12/17/18 06:00 Blood Pressure 122/57 L 12/17/18 06:00 O2 Sat by Pulse Oximetry (%) 98 12/16/18 21:00 Lab Results WBC 7.2 K/mm3 (4.0-10.0) 12/16/18 10:00 RBC 4.47 M/mm3 (4.00-5.60) 12/16/18 10:00 Hgb 11.7 GM/dL (11.7-16.9) 12/16/18 10:00 Hct 34.6 % (35.4-49) L 12/16/18 10:00 MCV 77.5 fl (80-96) L 12/16/18 10:00 MCHC 33.7 g/dl (32.0-35.9) 12/16/18 10:00 RDW 15.8 % (11.9-15.9) 12/16/18 10:00 Plt Count 218 K/MM3 (134-434) 12/16/18 10:00 Sodium 135 mmol/L (136-145) L 12/16/18 10:00 Potassium 4.3 mmol/L (3.5-5.1) 12/16/18 10:00 Chloride 100 mmol/L (98-107) 12/16/18 10:00 Carbon Dioxide 29 mmol/L (21-32) 12/16/18 10:00 Anion Gap 6 MMOL/L (8-16) L 12/16/18 10:00 BUN 12.0 mg/dL (7-18) 12/16/18 10:00 Creatinine 0.7 mg/dL (0.55-1.3) 12/16/18 10:00 Random Glucose 97 mg/dL (74-106) 12/16/18 10:00 Calcium 8.8 mg/dL (8.5-10.1) 12/16/18 10:00 INR 1.01 (0.83-1.09) 12/15/18 17:04 IMP: soft tissue abscess left antecubital fossa. PLAN: For I and in OR today; r/b/t/a's d/w the patient; his primary concern h/e now revolves issues around his Methadone and it is unclear if he will sign out AMA or stay for the procedure. Van Terry MD FACS
[2018-12-17] MEDS ORDERED: PT OWN MED DRAWER 7, Y5N ONE (09:42)
[2018-12-17] MEDS: PRENATAL VITAMINS W/ FOLIC ACID TABLET (FP) PO SCH (09:47)
[2018-12-17] MEDS: RANITIDINE HCL 150 MG TABLET (FP) PO SCH (09:47)
[2018-12-17] MEDS: NICOTINE 21 MG/24 HOURS TOPICAL PATCH TD SCH (09:47)
[2018-12-17] MEDS ORDERED: cloNIDine HCL 0.1 MG TABLET PO SCH (10:00)
--- NOTE | 2018-12-17 11:11 | DS ---
Physical Exam: SUBJECTIVE: Patient seen on the 5th floor, not examined as he was refusing. Patient reports that after being given his methadone 100mg this morning, he vomited up the methadone and gabapentin. However, there was no evidence that he actually vomited the methadone. He was agitated, demanding with staff, verbally aggressive demanding that he receive another dose of methadone. He continued to pace the hallways following his primary RN and shouting at her while she tended to other patients. Staff feels unsafe to care for him despite our attempts to de-escalate the situation and offer him alternate medications. I spoke to Dr. Balderrama ([facility]) who advised me not to give him another dose of methadone and offer him catapres instead. I went to see patient and offered him another dose of gabapentin and a dose of catapres and explained to him that I am unable to give him another dose of methadone as it may impair his respiratory drive. He will also be getting anesthesia for the left arm abscess today with surgery. He again became demanding and threatening to staff, walking around the 5th floor pod and entering other patient's rooms, being non compliant with his NPO status and drinking water from other patient's rooms. I gave him an option to stay and get surgery or he can leave AMA but informed him that he will not be getting any more methadone today. Security called numerous times as patient became verbally abusive, threatening to staff and other patients. Patient then told me that if I dont give him methadone, he will refuse surgery, antibiotics and all other interventions. He refused me to give him a benzo to help him calm down when I offered. At this time, this patient is displaying threatening behaviour to the staff and patients and we fear for our safety as well as for the safety of our patients. Security has been at the bedside. Since patient is refusing all treatments, he will be sent home and be escorted out of the hospital. . OBJECTIVE: Vital Signs Period Temp Pulse Resp BP Sys/Quintanilla Pulse Ox Last 24 Hr 97.5 F-98.7 F 71-91 18-20 101-151/57-88 98 PHYSICAL EXAM - LIMITED. GENERAL: angry, agitated, threatening. HEAD: Normal with no signs of trauma. EYES: conjunctiva clear. ENT: Ears normal, nares patent, oropharynx clear without exudates, moist mucous membranes. EXTREMITIES: left arm Induration, tenderness, and erythema with blister just proximal to left AC. NEUROLOGICAL: extreme anxiety, anger. PSYCH:agitated, threatening LABS HOSPITAL COURSE: Date of Admission:12/15/18 Date of Discharge: 12/17/18 discharge home. he is refusing treatment. he has capacity to make his own medical decisions Minutes to complete discharge: 60 Discharge Summary Reason For Visit: COCAINE DEPENDENCE , CELLULITIS Current Active Problems Abscess (Acute) Cellulitis and abscess of upper extremity (Acute) Prophylactic measure (Acute) Tobacco dependence (Acute) - Instructions - Home Medications Comprehensive Discharge Medication List: Ambulatory Orders Gabapentin 600 mg PO TID 11/06/18 Omeprazole 40 mg PO DAILY 11/06/18 Problem List - Problems (1) Cellulitis and abscess of upper extremity Code(s): L03.119 - CELLULITIS OF UNSPECIFIED PART OF LIMB; L02.419 - CUTANEOUS ABSCESS OF LIMB, UNSPECIFIED (2) Abscess Code(s): L02.91 - CUTANEOUS ABSCESS, UNSPECIFIED (3) Tobacco dependence Code(s): F17.200 - NICOTINE DEPENDENCE, UNSPECIFIED, UNCOMPLICATED (4) Cellulitis and abscess of hand Code(s): L03.119 - CELLULITIS OF UNSPECIFIED PART OF LIMB; L02.519 - CUTANEOUS ABSCESS OF UNSPECIFIED HAND (5) Cocaine dependence Code(s): F14.20 - COCAINE DEPENDENCE, UNCOMPLICATED Qualifiers: Substance use status: uncomplicated Qualified Code(s): F14.20 - Cocaine dependence, uncomplicated (6) IVDU (intravenous drug user) Code(s): F19.90 - OTHER PSYCHOACTIVE SUBSTANCE USE, UNSPECIFIED, UNCOMPLICATED (7) Methadone maintenance therapy patient Code(s): F11.20 - OPIOID DEPENDENCE, UNCOMPLICATED (8) Prophylactic measure Code(s): Z29.9 - ENCOUNTER FOR PROPHYLACTIC MEASURES, UNSPECIFIED This patient is new to me today: No Emergency Visit: Yes ED Registration Date: 12/15/18 Care time: The patient presented to the Emergency Department on the above date and was hospitalized for further evaluation of their emergent condition. Critical Care patient: No - Discharge Referral Referred to [facility] Med P.C.: No
== END 2018-12-17 11:27 | disposition left against medical advice (07) | DRG 383 ==
LOC: JER 15:40 → JERBED 18:53 → J5S 12-16 19:11
PROVIDERS: ADMIT Internal Medicine; ATTEND Nurse Practitioner Family
DX: L02.414 Cutaneous abscess of left upper limb (principal); F14.20 Cocaine dependence, uncomplicated; F10.230 Alcohol dependence with withdrawal, uncomplicated; K21.9 Gastro-esophageal reflux disease without esophagitis; F12.20 Cannabis dependence, uncomplicated; G62.9 Polyneuropathy, unspecified; F17.210 Nicotine dependence, cigarettes, uncomplicated; G47.00 Insomnia, unspecified; F19.90 Other psychoactive substance use, unspecified, uncomplicated; F11.20 Opioid dependence, uncomplicated; Z86.59 Personal history of other mental and behavioral disorders
CPT/HCPCS: 36415; 73060-TC-LT-FY; 76882-TC-RT-FY; 80053; 83036; 83605; 83735; 85025; 85610; 87040; 93005; 93010; 93306-TC; 93971; 99284-25; J0131; J7030